=== PATIENT | female | born 1990 | race African-American/Black ===

== ENCOUNTER 2017-07-28 13:03 | Emergency (ER) | payer MEDICAID ==
[~2017-07-28] VITALS: Ht 162.6 cm; Wt 54.8 kg
[2017-07-28 13:08] VITALS: BP 120/76
== END 2017-07-28 13:45 | disposition home or self-care (01) ==
LOC: ED 13:30
DX: K08.89 Other specified disorders of teeth and supporting structures (principal)
CPT/HCPCS: 99283